=== PATIENT | male | born 1985 | race Native Hawaiian/Other Pacific Islander ===

== ENCOUNTER 2018-04-22 12:25 | Emergency (ER) | payer OTHER ==
[~2018-04-22] VITALS: Ht 157.5 cm; Wt 62.6 kg
[2018-04-22 14:00] VITALS: BP 130/82; TEMP 98.4
== END 2018-04-22 14:05 | disposition home or self-care (01) ==
LOC: ED 12:25
DX: K02.9 Dental caries, unspecified (principal); K04.7 Periapical abscess without sinus
CPT/HCPCS: 96372; 99283; J0696; J1885